=== PATIENT | female | born 1950 ===

== ENCOUNTER 2018-12-28 07:18 | Outpatient (CLI) | payer OTHER | END 2018-12-28 07:19 | disposition home or self-care (01) | LOC: RAD 07:18 | DX: M54.81 Occipital neuralgia (principal); G63 Polyneuropathy in diseases classified elsewhere; G24.8 Other dystonia; M31.5 Giant cell arteritis with polymyalgia rheumatica; I67.7 Cerebral arteritis, not elsewhere classified ==